=== PATIENT | male | born 1970 | race Caucasian/White ===

== ENCOUNTER 2021-08-26 21:56 | Emergency (ER) | payer BC | END 2021-08-26 23:12 | disposition home or self-care (01) | LOC: JP.ED 21:56 | DX: R55 Syncope and collapse (principal); A08.4 Viral intestinal infection, unspecified; Z88.0 Allergy status to penicillin | CPT/HCPCS: 36415; 80053; 84443; 84484; 85025; 93005; 93010; 99283; 99284-25 ==

== ENCOUNTER 2023-07-07 16:31 | Emergency (ER) | payer BC ==
[2023-07-07 18:26] LABS: BASOPHILS ABSOLUTE AUTO 0.05 K/uL (0.00-0.10); BASOPHILS PERCENT AUTO 0.4 % (0.1-1.3); EOSINOPHILS ABSOLUTE AUTO 0.11 K/uL (0.00-0.40); EOSINOPHILS PERCENT AUTO 0.9 % (0.0-5.4); HEMATOCRIT 40.3 % (38.4-49.7); HEMOGLOBIN 13.9 g/dL (12.9-16.9); IMMATURE GRAN ABSOLUTE AUTO 0.03 K/uL (0.00-0.23); IMMATURE GRAN PERCENT AUTO 0.2 % (0.0-0.7); LYMPHOCYTES ABSOLUTE AUTO 1.89 K/uL (0.8-3.3); LYMPHOCYTES PERCENT AUTO 15.5 % (11.4-47.7); MEAN CORPUSCULAR HEMOGLOBIN 30.3 pg (31.6-35.5); MEAN CORPUSCULAR HGB CONC 34.5 g/dL (31.6-35.5); MEAN CORPUSCULAR VOLUME 87.8 fL (81.4-99.0); MONOCYTES ABSOLUTE AUTO 1.25 K/uL (0.20-0.90); MONOCYTES PERCENT AUTO 10.3 % (3.3-12.6); NEUTROPHILS ABSOLUTE AUTO 8.83 K/uL (1.0-7.6); NEUTROPHILS PERCENT AUTO 72.7 % (40.0-78.1); PLATELET COUNT,PLT 253 K/uL (130-375); RED BLOOD CELL COUNT 4.59 M/uL (4.14-5.76); WHITE BLOOD CELL COUNT,WBC 12.2 K/uL (3.2-11.0)
[2023-07-07] MEDS: Ketorolac 30 MG/ML SDV IVPUSH ONE (18:30)
[2023-07-07 18:39] LABS: APPEARANCE,URINE CLEAR (CLEAR); BILIRUBIN,URINE NEGATIVE (NEGATIVE); COLOR,URINE YELLOW (YELLOW); GLUCOSE,URINE NEGATIVE (NEGATIVE); KETONES,URINE NEGATIVE (NEGATIVE); LEUKOCYTE ESTERASE,URINE NEGATIVE (NEGATIVE); NITRITE,URINE NEGATIVE (NEGATIVE); OCCULT BLOOD,URINE NEGATIVE (NEGATIVE); PROTEIN,URINE NEGATIVE (NEGATIVE)
[2023-07-07 18:45] LABS: A/G RATIO 0.8 (1.2-2.2); ALANINE AMINOTRANSFERASE,ALT 28 U/L (12-78); ALBUMIN 3.1 g/dL (3.4-5.0); ALKALINE PHOSPHATASE 110 U/L (46-116); ASPARTATE AMNIOTRANSFERASE,AST 15 U/L (15-37); BILIRUBIN TOTAL 0.6 mg/dL (0.2-1.0); BLOOD UREA NITROGEN,BUN 12 mg/dL (7-18); CARBON DIOXIDE,CO2 26 mmol/L (21-32); CHLORIDE,CL 101 mmol/L (100-108); EST CRCL DRUG DOSING (CG) 82.65 mL/min; ESTIMATED GFR 90 mL/min (>60); GLUCOSE RANDOM 93 mg/dL (74-106); POTASSIUM,K 3.9 mmol/L (3.6-5.2); PROTEIN TOTAL,TP 6.9 g/dL (6.4-8.2); SODIUM,NA 134 mmol/L (140-148)
[2023-07-07 18:47] LABS: AMORPHOUS SEDIMENT,URINE NOT SEEN; BACTERIA,URINE FEW; EPITHELIAL CELLS,URINE RARE; MUCUS,URINE MODERATE; RBC,URINE NOT SEEN (0-5); WBC,URINE 0-5 (0-5)
[2023-07-07 18:48] LABS: ANION GAP 10.9 mmol/L (5.0-14.0)
[2023-07-07] MEDS: Sodium Chloride 0.9% 80 ML IV SCH (19:36)
[2023-07-07] MEDS: Sodium Chloride 0.9% 10 ML Syringe FLUSH PRN (19:36)
[2023-07-07] MEDS: Iopamidol 612 MG/ML 100 ML Bottle IV PRN (19:36)
[2023-07-07] MEDS: HYDROmorphone 0.5 MG/0.5 ML Syringe IVPUSH ONE (20:40)
[2023-07-07] MEDS: Naloxone 0.4 MG/ML SDV ONE (20:53)
[2023-07-07] MEDS: Naloxone 0.4 MG/ML SDV IVPUSH STA (20:54)
[2023-07-07] MEDS ORDERED: Sodium Chloride 0.9% 10 ML SDV FLUSH ONE (21:22)
[2023-07-07] MEDS: Sodium Chloride 0.9% 100 ML IV SCH (21:41)
[2023-07-07] MEDS: Iopamidol 755 Mg/ML 100 ML Bottle IV SCH (21:41)
[2023-07-07] MEDS: Sodium Chloride 0.9% 1,000 ML IV SCH (21:45)
[2023-07-07] MEDS: Acetaminophen 325 MG Tab PO ONE (22:35)
[2023-07-07] MEDS: Rivaroxaban 15 MG Tab PO SCH (23:22)
== END 2023-07-07 23:30 | disposition home or self-care (01) ==
LOC: JP.ED 16:31
DX: R59.0 Localized enlarged lymph nodes (principal); I26.09 Other pulmonary embolism with acute cor pulmonale; Z87.891 Personal history of nicotine dependence; Z88.5 Allergy status to narcotic agent; Z88.0 Allergy status to penicillin
CPT/HCPCS: 36415; 71275; 74177; 80053; 81001; 83605; 84484; 85025; 86140; 96374; 96375; 99284; A9270; J1170; J1885; J2310; J3490; J7030; Q9967

== ENCOUNTER 2024-02-01 06:37 | Day surgery (SDC) | payer BC ==
[2024-02-01] MEDS ORDERED: fentaNYL 50 MCG/ML SDV ONE (06:59)
[2024-02-01] MEDS ORDERED: Propofol 200 MG/20 ML SDV ONE (06:59)
[2024-02-01] MEDS ORDERED: Midazolam 1 MG/ML 2 ML SDV ONE (06:59)
[2024-02-01] MEDS: Lactated Ringers 1,000 ML IV SCH (07:20)
== END 2024-02-01 09:45 | disposition home or self-care (01) ==
LOC: JP.SDS 06:37
PROVIDERS: ATTEND Surgery
DX: Z12.11 Encounter for screening for malignant neoplasm of colon (principal)
CPT/HCPCS: 00812; 45378; J2250; J2704; J3010; J7120